=== PATIENT | male | born 1975 | race Two or more races ===

== ENCOUNTER 2020-01-22 16:22 | Emergency (ER) | payer OTHER ==
[~2020-01-22] VITALS: Ht 175.3 cm; Wt 71.2 kg
--- NOTE | 2020-01-22 16:38 | NUR ---
C/O RUQ PAIN X A COUPLE OF DAYS, WORSE TODAY. DENIES N/V. LAST BM: "A COUPLE OF DAYS AGO". "MY PEE IS DARK" DENIES UTI SX. "I DRINK A LOT OF WATER. DENIES TAKING MEDICATION TODAY, DENIES MED HX. DENIES TRAUMA, FALL. DID SOME HEAVY LIFTING. PT CONCERNED THAT THERE'S ASBESTOS IN ROOM HE STAYS IN.
--- NOTE | 2020-01-22 17:08 | NUR ---
AMBULATORY TO & FROM [facility] W/OUT INCIDENT; GAIT STEADY. VOIDED SPECIMEN PROVIDED: CLEAR, PALE YELLOW.
[2020-01-22 17:44] LABS: MICROSCOPIC NOT IND
[2020-01-22 17:45] LABS: BASOPHILS # (AUTO) 0.06 x10^3/uL (0-0.1); BASOPHILS % (AUTO) 1 % (0-1); EOSINOPHILS # (AUTO) 0.07 x10^3/uL (0-0.4); EOSINOPHILS % (AUTO) 1 % (1-7); LYMPHOCYTES # (AUTO) 1.89 x10^3/uL (1-3.4); LYMPHOCYTES % (AUTO) 21 % (22-44); MD NO; MEAN CORPUSCULAR HEMOGLOBIN 31.1 pg (27.5-34.5); MEAN CORPUSCULAR HGB CONC 33.6 g/dL (33.2-36.2); MEAN PLATELET VOLUME 10.9 fL (7.4-10.4); MONOCYTES # (AUTO) 0.62 x10^3/uL (0.2-0.8); MONOCYTES % (AUTO) 7 % (2-9); NEUTROPHILS # (AUTO) 6.56 x10^3/uL (1.8-6.8); NEUTROPHILS % (AUTO) 71 % (42-75); PLATELET COUNT 206 x10^3/uL (130-400); RED BLOOD COUNT 4.51 x10^6/uL (4.38-5.82); RED CELL DISTRIBUTION WIDTH 13.8 % (9.4-14.8)
[2020-01-22 17:54] LABS: ALBUMIN 3.6 g/dL (3.4-5.0); ANION GAP 7 mmol/L (5-15); CALCIUM 8.6 mg/dL (8.5-10.1); CHLORIDE 111 mmol/L (98-107)
--- NOTE | 2020-01-22 17:58 | NUR ---
PT ENDORSED TO BREAK RN
[2020-01-22 17:59] LABS: ALANINE AMINOTRANSFERASE 22 U/L (12-78); ALKALINE PHOSPHATASE 82 U/L (45-117); BILIRUBIN,TOTAL 0.8 mg/dL (0.2-1.0); TOTAL PROTEIN 7.4 g/dL (6.4-8.2)
[2020-01-22 18:00] LABS: BARBITURATE SCREEN, URINE Negative (Negative); CANNABINOID SCREEN, URINE Negative (Negative); METHADONE SCREEN, URINE Negative (Negative); OPIATE SCREEN, URINE Negative (Negative)
[2020-01-22 18:03] LABS: AMPHETAMINE SCREEN, URINE Negative (Negative); BENZODIAZEPINE SCREEN, URINE Negative (Negative); COCAINE SCREEN, URINE Negative (Negative)
[2020-01-22 20:14] VITALS: BP 118/63
== END 2020-01-22 19:55 | disposition home or self-care (01) ==
LOC: ED 17:12
DX: R07.89 Other chest pain (principal); R10.13 Epigastric pain; R10.11 Right upper quadrant pain; R00.0 Tachycardia, unspecified; F10.129 Alcohol abuse with intoxication, unspecified; Y90.9 Presence of alcohol in blood, level not specified
CPT/HCPCS: 36415; 71045; 76700; 80053; 80307; 81003; 83690; 85025; 93005; 99285

== ENCOUNTER 2021-03-14 17:43 | Emergency (ER) | payer OTHER ==
[~2021-03-14] VITALS: Ht 175.3 cm; Wt 70.9 kg
[2021-03-14 20:36] VITALS: BP 111/78
== END 2021-03-14 21:12 | disposition home or self-care (01) ==
LOC: ED 18:00
DX: U07.1 COVID-19 (principal); J06.9 Acute upper respiratory infection, unspecified; R19.7 Diarrhea, unspecified; R51.9 Headache, unspecified
CPT/HCPCS: 71045; 99284; U0003; U0005